=== PATIENT | male | born 1970 | race Caucasian/White ===

== ENCOUNTER 2017-05-11 22:42 | Emergency (ER) | payer OTHER ==
[~2017-05-11] VITALS: Ht 175.3 cm; Wt 82.0 kg
[2017-05-11] MEDS ORDERED: HYDROcodone/APAP 5/325 TABLET ONE (23:16)
[2017-05-11] MEDS ORDERED: ONDANSETRON ODT 4 MG ONE (23:16)
[2017-05-11 23:17] LABS: HEMATOCRIT 47.7 % (39.2-51.8); HEMOGLOBIN 15.9 g/dL (13.7-18.0); WHITE BLOOD COUNT 6.9 x10^3/uL (3.4-10)
[2017-05-11 23:30] LABS: ASPARTATE AMINO TRANSFERASE 25 U/L (15-37); BLOOD UREA NITROGEN 14 mg/dL (7-18)
[2017-05-11] MEDS ORDERED: HYDROcodone/APAP 5/325 TABLET PO ONE (23:30)
[2017-05-11] MEDS ORDERED: ONDANSETRON ODT 8 MG PO ONE (23:30)
[2017-05-11 23:35] LABS: IS PT STATUS REG ER OR PRE ER? YES
[2017-05-12 01:34] VITALS: BP 134/91
== END 2017-05-12 01:36 | disposition home or self-care (01) ==
LOC: ED 23:27
DX: R07.89 Other chest pain (principal); Z88.0 Allergy status to penicillin; Z88.1 Allergy status to other antibiotic agents; Z88.2 Allergy status to sulfonamides; Z88.6 Allergy status to analgesic agent
CPT/HCPCS: 36415; 71010; 80053; 83880; 84484; 85025; 85610; 85730; 93005; 99285; Q0162